=== PATIENT | male | born 1970 | race Caucasian/White ===

== ENCOUNTER 2017-05-11 19:50 | Emergency (ER) | payer BC, MEDICARE ==
[2017-05-11] MEDS ORDERED: DIPHENHYDRAMINE HCL IV 50 MG/ML VIAL IVP ONE (20:10)
[2017-05-11] MEDS ORDERED: METOCLOPRAMIDE HCL 10 MG/2 ML VIAL IVP ONE (20:10)
--- NOTE | 2017-05-11 20:16 | Emergency Department Record ---
History of Present Illness - General Chief Complaint: Headache Migraine Stated Complaint: THINKS HE IS DEHYDRATED, CAM Time Seen by Provider: 05/11/17 20:10 Source: Patient Mode of Arrival: Ambulatory Limitations: No limitations - History of Present Illness Initial Comments: 46 yo male presents to ED with a CC of possible dehydration. Patient reports that he has been working outdoors all day and sweating a lot, reports drinking "about a gallon of water" today as a result. Patient reports aching to the UEs and LEs bilaterally as well as headache symptoms. Patient denies fevers, chills , or recent illness. 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 MD Complaint: Headache, Other (possible dehydration) Onset/Timin -: Hour(s) Onset Description: Gradual Location: Frontal Severity scale (1-10): 6 Quality: Aching Consistency: Constant, Getting worse Improves With: Nothing Worsens With: None Associated Symptoms: Tingling/numbness - Related Data Home Medications Medication Instructions Recorded Confirmed Last Taken Baclofen 10 mg PO BID 09/20/16 05/11/17 Unknown Duloxetine HCl [Cymbalta] 60 mg PO DAILY 09/20/16 05/11/17 Unknown Pregabalin [Lyrica] 75 mg PO BID 09/20/16 05/11/17 Unknown Valacyclovir HCl [Valtrex] 1,000 mg PO ASDIR 09/20/16 05/11/17 Unknown Allergies Allergy/AdvReac Type Severity Reaction Status Date / Time codeine Allergy throat Verified 09/20/16 00:52 swelling topiramate [From Topamax] Allergy RASH Verified 09/20/16 00:52 Travel Screening - Travel/Exposure Within Last 30 Days Have you traveled within the last 30 days?: No Review of Systems Constitutional: Denies: Chills, Fever, Malaise, Night sweats Eyes: Denies: Eye discharge, Eye pain ENT: Denies: Congestion, Ear pain, Epistaxis Respiratory: Denies: Cough, Dyspnea Cardiovascular: Denies: Chest pain, Dyspnea on exertion Endocrine: Denies: Fatigue, Heat or cold intolerance Gastrointestinal: Denies: Abdominal pain, Nausea, Vomiting Genitourinary: Denies: Testicular pain, Testicular mass Musculoskeletal: Denies: Arthralgia, Back pain, Gout, Joint swelling Skin: Denies: Bruising, Change in color Neurological: Reports: Headache. Denies: Abnormal gait, Confusion, Seizure Psychiatric: Denies: Anxiety Hematological/Lymphatic: Denies: Anemia, Blood Clots Past Medical History - SOCIAL HISTORY Smoking Status: Never smoker Alcohol Use: None Drug Use: None - RESPIRATORY Hx Respiratory Disorders: No - CARDIOVASCULAR Hx Cardio Disorders: No - NEURO Hx Neuro Disorders: No - GI Hx GI Disorders: No - Hx Genitourinary Disorders: No - ENDOCRINE Hx Endocrine Disorders: No - MUSCULOSKELETAL Hx Musculoskeletal Disorders: Yes Hx Fibromyalgia: Yes Comment:: muscular neuropathy - PSYCH Hx Psych Problems: No - HEMATOLOGY/ONCOLOGY Hx Hematology/Oncology Disorders: Yes Comment:: low IGG Family Medical History Any Significant Family History?: No Physical Exam - General General Appearance: Alert, Oriented x3, Cooperative, Mild distress, Other ( appears to be resting comfortably watching television on examination) Limitations: No limitations - Head Head exam: Atraumatic, Normocephalic, Normal inspection Head exam detail: negative: Abrasion, Contusion, Raphael's sign, General tenderness, Hematoma, Laceration - Eye Eye exam: Normal appearance. negative: Conjunctival injection, Periorbital swelling, Periorbital tenderness, Scleral icterus - ENT Ear exam: negative: Auricular hematoma, Auricular trauma Nasal Exam: negative: Active bleeding, Discharge, Dried blood, Foreign body Mouth exam: negative: Drooling, Laceration, Muffled voice, Tongue elevation - Neck Neck exam: Normal inspection. negative: Meningismus, Tenderness - Respiratory Respiratory exam: Normal lung sounds bilaterally. negative: Rales, Respiratory distress, Rhonchi, Stridor - Cardiovascular Cardiovascular Exam: Regular rate, Normal rhythm, Normal heart sounds - GI/Abdominal GI/Abdominal exam: Soft. negative: Rebound, Rigid, Tenderness - Rectal Rectal exam: Deferred - exam: Deferred - Extremities Extremities exam: Normal inspection. negative: Calf tenderness, Pedal edema, Tenderness - Back Back exam: Denies: CVA tenderness (R), CVA tenderness (L) - Neurological Neurological exam: Alert, Normal gait, Oriented X3 - Psychiatric Psychiatric exam: Normal affect, Normal mood - Skin Skin exam: Normal color. negative: Abrasion Type of lesion: negative: abrasion Course Vital Signs 05/11/17 19:52 Temperature 98.4 F Pulse Rate 84 Respiratory 18 Rate Blood Pressure 138/91 Pulse Ox 97 - Reevaluation(s) Reevaluation #1: 05/11/17 20:39 Labs reviewed and are grossly unremarkable for an acute process. IVFs are infusing currently. Reevaluation #2: 05/11/17 21:09 patient was reassessed, reports that he is feeling much better and that his headache symptoms have improved. Patient appears stable for discharge at this time. Medical Decision Making - Lab Data Result diagrams: 05/11/17 20:00 05/11/17 20:00 Disposition Disposition: Discharge Clinical Impression: Dehydration Headache Qualifiers: Headache type: unspecified Headache chronicity pattern: acute headache Intractability: not intractable Qualified Code(s): R51 - Headache Disposition: Home, Self-Care Condition: (2) Stable Instructions: Acute Headache (ED) Additional Instructions: Return to ED if your symptoms worsen or if you have any concerns. Follow-up with your family doctor in 3-5 days as directed. Forms: Patient Portal Access Time of Disposition: 21:11 Quality - Quality Measures Quality Measures: N/A - Blood Pressure Screening Blood Pressure Classification: Hypertensive Reading Systolic Measurement: 138 Diastolic Measurement: 91 Screening for High Blood Pressure: < First Hypertensive BP, F/U Documented > [ G8950] First Hypertensive Follow-up Interventions: Referral to alternative/primary care provider.
[2017-05-11 20:20] LABS: BASO % 0.2 % (0-6); EOS % 0.8 % (0-6); GRAN % 60.2 % (47-80); HEMATOCRIT 44.6 % (42.0-52.0); HEMOGLOBIN 15.9 gm/dl (14.0-18.0); LYMPH % 30.1 % (16-45); MEAN CELL VOLUME 87.5 fl (81-97); MEAN CORPUSCULAR HEMOGLOBIN 31.2 pg (27-33); MEAN CORPUSCULAR HGB CONC 35.7 g/dl (32-36); MEAN PLATELET VOLUME 9.8 fl (7.4-10.4); MONO % 8.7 % (0-9); PLATELET COUNT 324 K/uL (130-400); RED CELL DISTRIBUTION WIDTH 12.7 % (11.5-14.5)
[2017-05-11 20:30] LABS: ALB/GLOB RATIO 1.7 (1.1-1.8); ALBUMIN 5.2 gm/dL (3.5-5.0); ALKALINE PHOSPHATASE 81 U/L (38-126); ALT/SGPT 58 U/L (21-72); AST/SGOT 44 U/L (17-59); BILIRUBIN,TOTAL 1.18 mg/dL (0.2-1.3); BLOOD UREA NITROGEN 19 mg/dL (9-20); CREATININE 1.1 mg/dL (0.66-1.25); EST GLOMERULAR FILTRATION RATE > 60 ml/min; GLUCOSE,RANDOM 102 mg/dL (70-110); TOTAL PROTEIN 8.3 gm/dL (6.3-8.2)
== END 2017-05-11 21:26 | disposition home or self-care (01) ==
LOC: ER 19:50
DX: E86.0 Dehydration (principal); R51 Headache; R20.0 Anesthesia of skin
CPT/HCPCS: 80053; 85025; 96374; 96375; 99284; J1200; J2765

== ENCOUNTER 2017-08-06 19:11 | Emergency (ER) | payer BC ==
[2017-08-06] MEDS ORDERED: PIPERACILLIN SODIUM/TAZOBACTAM 4.5 GM in 0.9 % SODIUM CHLORIDE 100ML 100 ML IVPB ONE (19:33)
--- NOTE | 2017-08-06 19:39 | Emergency Department Record ---
History of Present Illness - General Chief complaint: ENT Stated complaint: CONGESTION Time Seen by Provider: 08/06/17 19:31 Source: Patient Mode of Arrival: Ambulatory Limitations: No limitations - History of Present Illness Initial comments: 46 yo male presents to ED with a CC of worsening sinus infection symptoms. Patient reports that he was started on Augmentin for recurrent sinus disease 6 days ago, despite treatment, his symptoms continue to worsen. 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 Patient denies fevers, chills, or other symptoms. Patient reports previous episodes of ear infections requiring TM reconstructions as well as mastoiditis through [facility], [facility]. MD complaint: Other Onset/Timin -: Week(s) Location: Other Severity scale (1-10): 6 Quality: Aching Consistency: Constant, Getting worse Improves with: Cold therapy Worsens with: None - Related Data Allergies Allergy/AdvReac Type Severity Reaction Status Date / Time codeine Allergy throat Verified 08/06/17 19:14 swelling topiramate [From Topamax] Allergy RASH Verified 08/06/17 19:14 Travel Screening - Travel/Exposure Within Last 30 Days Have you traveled within the last 30 days?: No - Travel Symptoms Symptom Screening: None Review of Systems Constitutional: Denies: Chills, Fever, Malaise, Night sweats Eyes: Denies: Eye discharge, Eye pain ENT: Reports: Congestion, Ear pain. Denies: Epistaxis Respiratory: Denies: Cough, Dyspnea Cardiovascular: Denies: Chest pain, Dyspnea on exertion Endocrine: Denies: Fatigue, Heat or cold intolerance Gastrointestinal: Denies: Abdominal pain, Nausea, Vomiting Genitourinary: Denies: Incontinence, Retention Musculoskeletal: Denies: Arthralgia, Back pain, Gout, Joint swelling Skin: Denies: Bruising, Change in color Neurological: Denies: Abnormal gait, Confusion, Headache, Seizure Psychiatric: Denies: Anxiety Hematological/Lymphatic: Denies: Anemia, Blood Clots Past Medical History - SOCIAL HISTORY Smoking Status: Never smoker - RESPIRATORY Hx Respiratory Disorders: No - CARDIOVASCULAR Hx Cardio Disorders: No - NEURO Hx Neuro Disorders: No - GI Hx GI Disorders: No - Hx Genitourinary Disorders: No - ENDOCRINE Hx Endocrine Disorders: No - MUSCULOSKELETAL Hx Musculoskeletal Disorders: Yes Hx Fibromyalgia: Yes Comment:: muscular neuropathy - PSYCH Hx Psych Problems: No - HEMATOLOGY/ONCOLOGY Hx Hematology/Oncology Disorders: Yes Comment:: low IGG Family Medical History Any Significant Family History?: Yes Hx Cancer: Grandparents Hx Diabetes: Grandparents Hx Heart Disease: Mother, Grandparents Hx HTN: Father, Mother Physical Exam - General General Appearance: Alert, Oriented x3, Cooperative, Mild distress Limitations: No limitations - Head Head exam: Atraumatic, Normocephalic, Normal inspection Head exam detail: negative: Abrasion, Contusion, Raphael's sign, General tenderness, Hematoma, Laceration - Eye Eye exam: Normal appearance. negative: Conjunctival injection, Periorbital swelling, Periorbital tenderness, Scleral icterus - ENT Ear exam: negative: Auricular hematoma, Auricular trauma Nasal Exam: negative: Active bleeding, Discharge, Dried blood, Foreign body Mouth exam: negative: Drooling, Laceration, Muffled voice, Tongue elevation - Neck Neck exam: Normal inspection. negative: Meningismus, Tenderness - Respiratory Respiratory exam: Normal lung sounds bilaterally. negative: Rales, Respiratory distress, Rhonchi, Stridor - Cardiovascular Cardiovascular Exam: Regular rate, Normal rhythm, Normal heart sounds - GI/Abdominal GI/Abdominal exam: Soft. negative: Rebound, Rigid, Tenderness - Rectal Rectal exam: Deferred - exam: Deferred - Extremities Extremities exam: Normal inspection. negative: Calf tenderness, Pedal edema, Tenderness - Back Back exam: Denies: CVA tenderness (R), CVA tenderness (L) - Neurological Neurological exam: Alert, Normal gait, Oriented X3 - Psychiatric Psychiatric exam: Normal affect, Normal mood - Skin Skin exam: Normal color. negative: Abrasion Type of lesion: negative: abrasion Course Vital Signs 08/06/17 19:16 Temperature 98.2 F Pulse Rate 80 Respiratory 18 Rate Blood Pressure 149/100 Pulse Ox 97 - Reevaluation(s) Reevaluation #1: 08/06/17 20:04 Labs reviewed and are grossly unremarkable for an acute process. Reevaluation #2: 08/06/17 20:15 CT Maxillo-facial bones Right sided maxillary sinusitis Fluid left mastoid air cells Patient was updated on all results, given his history of immune suppression and numerous complications related to similar sympotms, recommend transfer to [facility] for admission and ENT consultation. Reevaluation #3: 08/06/17 20:21 Case was discussed with ED provider Dr. Morales, will accept transfer. Patient appears stable for transfer by private vehicle following antibiotic administration. Medical Decision Making - Lab Data Result diagrams: 08/06/17 19:39 08/06/17 19:39 Disposition Disposition: Transfer Clinical Impression: Immunosuppressed status Sinusitis Qualifiers: Sinusitis location: maxillary Chronicity: acute Recurrence: recurrent Qualified Code(s): J01.01 - Acute recurrent maxillary sinusitis Disposition: Acute Care Hospital Transfer Transfer To: [facility] Reason For Transfer: Sinusitis with outpatient treatment failure, immunosuppression Accepting Physician: Andrew Time Discussed w/Accepting Physician: 20:20 Condition: (2) Stable Forms: Patient Portal Access Time of Disposition: 20:20 Quality - Quality Measures Quality Measures: N/A - Blood Pressure Screening Does Patient Have Any of the Following: No Blood Pressure Classification: Hypertensive Reading Systolic Measurement: 149 Diastolic Measurement: 100 Screening for High Blood Pressure: < First Hypertensive BP, F/U Documented > [ G8950] First Hypertensive Follow-up Interventions: Referral to alternative/primary care provider.
[2017-08-06 19:49] LABS: BASO % 0.1 % (0-6); EOS % 0.8 % (0-6); GRAN % 64.2 % (47-80); HEMATOCRIT 42.1 % (42.0-52.0); LYMPH % 28.5 % (16-45); MEAN CELL VOLUME 88.8 fl (81-97); MEAN CORPUSCULAR HEMOGLOBIN 31.6 pg (27-33); MEAN CORPUSCULAR HGB CONC 35.6 g/dl (32-36); MEAN PLATELET VOLUME 9.8 fl (7.4-10.4); MONO % 6.4 % (0-9); PLATELET COUNT 338 K/uL (130-400); RED BLOOD COUNT 4.74 M/uL (4.40-5.70); RED CELL DISTRIBUTION WIDTH 12.8 % (11.5-14.5); WHITE BLOOD COUNT W/O DIFF 7.6 K/uL (4.2-12.2)
[2017-08-06 20:03] LABS: ALB/GLOB RATIO 1.6 (1.1-1.8); ALBUMIN 4.2 g/dL (4.0-5.0); ALKALINE PHOSPHATASE 75 U/L (40-129); ALT/SGPT 34 U/L (<41); AST/SGOT 38 U/L (10.0-50.0); BLOOD UREA NITROGEN 15 mg/dL (6-20); CREATININE 0.7 mg/dL (0.7-1.2); EST GLOMERULAR FILTRATION RATE > 60 mL/min; GLUCOSE,RANDOM 115 mg/dL (74-109); TOTAL PROTEIN 6.9 g/dL (6.6-8.7)
--- NOTE | 2017-08-09 05:12 | CT SCAN REPORT ---
DATE: 08/06/2017 at 1950 hours. EXAM: CT SCAN OF THE SINUSES WITHOUT CONTRAST. HISTORY: Sinus congestion for the past two weeks. Sinusitis/mastoiditis. Left ear pain. TECHNIQUE: Standard CT imaging of the paranasal sinuses was performed in the axial plane without contrast. Additional coronal and sagittal reformatted images were also performed. COMPARISON: None. FINDINGS: There is moderate mucosal thickening within the right maxillary sinus. A small amount of fluid is present dependently consistent with superimposed acute sinusitis. The mucosal thickening includes the right ostiomeatal unit. There is minor mucosal thickening within the ethmoid sinuses. The remaining paranasal sinuses are clear. There is mild leftward deviation of the bony nasal septum. The nasal turbinates are unremarkable. There is a tiny amount of nonspecific fluid within the left mastoid air cells inferiorly. Postsurgical changes are also present within the left mastoid. The middle ear cavities are clear. The orbits and facial soft tissues appear normal. IMPRESSION: 1. RIGHT MAXILLARY SINUSITIS. 2. MINOR CHRONIC MUCOSAL THICKENING WITHIN THE ETHMOID SINUSES. 3. MILD LEFTWARD DEVIATION OF THE BONY NASAL SEPTUM. 4. POSTSURGICAL CHANGES WITHIN THE LEFT MASTOID. THERE IS A TINY AMOUNT OF NONSPECIFIC FLUID WITHIN THE INFERIOR ASPECT OF THE LEFT MASTOID AIR CELLS. JOB NUMBER: [id number] MTDD
== END 2017-08-06 20:38 | disposition short-term general hospital (02) ==
LOC: ER 19:11
DX: J01.01 Acute recurrent maxillary sinusitis (principal); D89.9 Disorder involving the immune mechanism, unspecified; D80.3 Selective deficiency of immunoglobulin G [IgG] subclasses; Z16.30 Resistance to unspecified antimicrobial drugs
CPT/HCPCS: 70486; 80053; 85025; 96365; 99285; J2543

== ENCOUNTER 2018-10-04 18:49 | Emergency (ER) | payer BC, MEDICARE ==
[2018-10-04] MEDS ORDERED: CLINDAMYCIN 600MG/50ML PREMIX 600 MG/50 ML BAG IVPB ONE (19:23)
--- NOTE | 2018-10-04 19:29 | Emergency Department Record ---
History of Present Illness - General Chief complaint: Extremity Problem Stated complaint: LT FOREARM PAIN Time Seen by Provider: 10/04/18 19:14 Source: Patient Mode of Arrival: Ambulatory Limitations: No limitations - History of Present Illness Initial comments: pt gets infusions from infectious disease clinic as he has immune deficiency. he had iv yesterday. he now has erythema and pain on the dorsum of hand and forearm. he has no pain in the upper arm MD Complaint: Extremity pain, Extremity swelling Onset/Timin -: Days(s) Location: Left, Forearm Severity scale (1-10): 7 Quality: Aching, Burning Consistency: Constant Improves with: Nothing Worsens with: Nothing Associated Symptoms: Denies other symptoms - Related Data Home Medications Medication Instructions Recorded Confirmed Last Taken Sulfamethoxazole/Trimethoprim 1 each PO BID 10/04/18 10/04/18 1 Day Ago [Bactrim 400-80 mg Tablet] ~10/03/18 Previous Rx's Medication Instructions Recorded Clindamycin HCl 450 mg PO Q8HR #90 capsule 10/04/18 Allergies Allergy/AdvReac Type Severity Reaction Status Date / Time codeine Allergy throat Verified 10/04/18 19:05 swelling topiramate [From Topamax] Allergy RASH Verified 10/04/18 19:05 Travel Screening - Travel/Exposure Within Last 30 Days Have you traveled within the last 30 days?: No - Travel/Exposure Within Last Year Have you traveled outside the [place] in the last year?: No - Additonal Travel Details Have you been exposed to anyone with a communicable illness?: No - Travel Symptoms Symptom Screening: None Review of Systems Reviewed: No additional complaints except as noted below Constitutional: Reports: As per HPI. Denies: Chills, Fever, Malaise, Night sweats, Weakness, Weight change Eyes: Reports: As per HPI. Denies: Eye discharge, Eye pain, Photophobia, Vision change ENT: Reports: As per HPI. Denies: Congestion, Dental pain, Ear pain, Epistaxis , Hearing loss, Throat pain Respiratory: Reports: As per HPI. Denies: Cough, Dyspnea, Hemoptysis, Stridor, Wheezes Cardiovascular: Reports: As per HPI. Denies: Arrhythmia, Chest pain, Dyspnea on exertion, Edema, Murmurs, Orthopnea, Palpitations, Paroxysmal nocturnal dyspnea, Rheumatic Fever, Syncope Endocrine: Reports: As per HPI. Denies: Fatigue, Heat or cold intolerance, Polydipsia, Polyuria Gastrointestinal: Reports: As per HPI. Denies: Abdominal pain, Constipation, Diarrhea, Hematemesis, Hematochezia, Melena, Nausea, Vomiting Genitourinary: Reports: As per HPI. Denies: Dysuria, Frequency, Hematuria, Incontinence, Retention, Testicular pain, Testicular mass, Urgency Musculoskeletal: Reports: As per HPI. Denies: Arthralgia, Back pain, Gout, Joint swelling, Myalgia, Neck pain Skin: Reports: As per HPI. Denies: Bruising, Change in color, Change in hair/ nails, Lesions, Pruritus, Rash Neurological: Reports: As per HPI. Denies: Abnormal gait, Confusion, Headache, Numbness, Paresthesias, Seizure, Tingling, Tremors, Vertigo, Weakness Psychiatric: Reports: As per HPI. Denies: Anxiety, Auditory hallucinations, Depression, Homicidal thoughts, Suicidal thoughts, Visual hallucinations Hematological/Lymphatic: Reports: As per HPI. Denies: Anemia, Blood Clots, Easy bleeding, Easy bruising, Swollen glands Past Medical History - SOCIAL HISTORY Smoking Status: Never smoker Alcohol Use: None Drug Use: None - RESPIRATORY Hx Respiratory Disorders: No - CARDIOVASCULAR Hx Cardio Disorders: No - NEURO Hx Neuro Disorders: No - GI Hx GI Disorders: No - Hx Genitourinary Disorders: No - ENDOCRINE Hx Endocrine Disorders: No - MUSCULOSKELETAL Hx Musculoskeletal Disorders: Yes Hx Fibromyalgia: Yes Comment:: muscular neuropathy - PSYCH Hx Psych Problems: No - HEMATOLOGY/ONCOLOGY Hx Hematology/Oncology Disorders: Yes Comment:: low IGG, autoimmune Family Medical History Any Significant Family History?: Yes Hx Cancer: Grandparents Hx Diabetes: Grandparents Hx Heart Disease: Mother, Grandparents Hx HTN: Father, Mother Physical Exam - General General Appearance: Alert, Oriented x3, Cooperative, Mild distress - Head Head exam: Normal inspection - Eye Eye exam: Normal appearance, PERRL, EOMI Pupils: Normal accommodation - ENT ENT exam: Normal exam, Mucous membranes moist, Normal external ear exam, Normal orophraynx Ear exam: Normal external inspection. negative: External canal tenderness Nasal Exam: Normal inspection. negative: Discharge, Sinus tenderness Mouth exam: Normal external inspection, Tongue normal Teeth exam: Normal inspection. negative: Dental caries Throat exam: Normal inspection. negative: Tonsillar erythema, Tonsillar exudate - Neck Neck exam: Normal inspection, Full ROM. negative: Tenderness - Respiratory Respiratory exam: Normal lung sounds bilaterally. negative: Respiratory distress - Cardiovascular Cardiovascular Exam: Regular rate, Normal rhythm, Normal heart sounds - GI/Abdominal GI/Abdominal exam: Soft, Normal bowel sounds. negative: Tenderness - Rectal Rectal exam: Deferred - exam: Deferred - Extremities Extremities exam: Full ROM, Normal capillary refill, Tenderness Image of Full Body: 1 - erythema, tenderness, slight swelling - Back Back exam: Reports: Normal inspection, Full ROM. Denies: Muscle spasm, Rash noted, Tenderness - Neurological Neurological exam: Alert, CN II-XII intact, Normal gait, Oriented X3 - Psychiatric Psychiatric exam: Normal affect, Normal mood - Skin Skin exam: Dry, Intact, Normal color, Warm Course Vital Signs 10/04/18 18:57 Temperature 98.7 F Pulse Rate 81 Respiratory 18 Rate Blood Pressure 161/83 Pulse Ox 96 - Reevaluation(s) Reevaluation #1: 10/04/18 20:24 pt has erythema and tenderness only on dorsum of forearm 10/04/18 20:27 the pain is not along the medial or proximal part of arm and is unlikely to be dvt however pt educated the need for a doppler if pain moves up arm Medical Decision Making - Lab Data Result diagrams: 10/04/18 19:22 Disposition Disposition: Discharge Clinical Impression: Cellulitis of forearm, left Disposition: Home, Self-Care Condition: (1) Good Instructions: Cellulitis (ED) Additional Instructions: follow up with infectious disease tomorrow. return sooner if worse. apply moist heat and keep elevated. if pain and redness move up arm be rechecked, Prescriptions: Clindamycin HCl 450 mg PO Q8HR #90 capsule Forms: Patient Portal Access Quality - Quality Measures Quality Measures: N/A - Blood Pressure Screening Does Patient Have Any of the Following: No Blood Pressure Classification: Pre-Hypertensive BP Reading Systolic Measurement: 161 Diastolic Measurement: 83 Screening for High Blood Pressure: < Pre-Hypertensive BP, F/U Documented > [ G8950] Pre-Hypertensive Follow-up Interventions: Follow-up with rescreen every year.
[2018-10-04 19:44] LABS: BASO % 0.1 % (0-6); EOS % 1.2 % (0-6); GRAN % 59.3 % (47-80); HEMATOCRIT 41.9 % (42.0-52.0); HEMOGLOBIN 14.7 gm/dl (14.0-18.0); LYMPH % 31.8 % (16-45); MEAN CELL VOLUME 91.5 fl (81-97); MEAN CORPUSCULAR HEMOGLOBIN 32.1 pg (27-33); MEAN CORPUSCULAR HGB CONC 35.1 g/dl (32-36); MEAN PLATELET VOLUME 9.7 fl (7.4-10.4); MONO % 7.6 % (0-9); PLATELET COUNT 251 K/uL (130-400); RED BLOOD COUNT 4.58 M/uL (4.40-5.70); RED CELL DISTRIBUTION WIDTH 13.4 % (11.5-14.5); WHITE BLOOD COUNT W/O DIFF 7.4 K/uL (4.2-12.2)
== END 2018-10-04 20:46 | disposition home or self-care (01) ==
LOC: ER 18:49
DX: T80.29XA Infection following other infusion, transfusion and therapeutic injection, initial encounter (principal); L03.114 Cellulitis of left upper limb
CPT/HCPCS: 85025; 96365; 99284